=== PATIENT | female | born 1945 | race Caucasian/White ===

== ENCOUNTER → 2016-12-17 | Outpatient (CLI) | payer BC ==
[~2016-12-17] MED LIST: AMBIEN 5MG TABLE5 MG PO; ATARAX 25MG25 MG/TAB PO; BONIVA150 MG PO; CALCI-CHEW500 MG PO; CENTRUM SILVER1 TA1 PO; COGENTIN 1MG1 MG/TAB PO; DESYREL 100MG100 MG PO; EFFEXOR 75M75 MG/TAB PO; EFFEXOR-XR150 MG; EFFEXOR-XR150 MG PO; EFFEXOR75 MG PO; HALDOL0.5 MG PO; HCTZ 25MG TAB25 MG PO; HCTZ12.5TAB PO; IRON325 M1 PO; LEVAQUIN 750MG750 MG PO; LIPITOR 10MG10 MG PO; NORCO 325 MG-7.1 TAB; PHENDIMETRAZIN105 MG PO; PHENERGAN 25 TA25 MG PO; PHENERGAN W/CO120 ML PO; PULMICORT180 MCG/Ac IH; ROBINUL1 MG PO; SEREVENT IH; SEROQUEL 1100 MG/TAB PO; SEROQUEL400 MG PO; SYNTHROID0.075 MG/T PO; SYNTHROID0.088 MG/T PO; SYNTHROID0.1 MG PO; TOPAMAX200 MG PO; TRIAMCINOLONE0.025% TP; TRILEPTAL 300M300 MG PO; [UNRECOGNIZED DRUG - OTHER] PO
== END ==
LOC: BHSO 13:42
DX: F31.81 Bipolar II disorder (principal)

== ENCOUNTER 2017-03-03 15:00 | Outpatient (RCR) | payer BC ==
[~2017-03-03 15:00] MED LIST changes: -EFFEXOR 75M75 MG/TAB PO; -NORCO 325 MG-7.1 TAB; -PHENERGAN 25 TA25 MG PO; -ROBINUL1 MG PO; -TRILEPTAL 300M300 MG PO
== END 2017-04-05 | disposition home or self-care (01) ==
LOC: WSST
DX: E03.8 Other specified hypothyroidism (principal); E06.3 Autoimmune thyroiditis; G12.20 Motor neuron disease, unspecified; R47.1 Dysarthria and anarthria

== ENCOUNTER → 2017-03-26 | Outpatient (CLI) | payer BC ==
[~2017-03-26] MED LIST changes: +EFFEXOR 75M75 MG/TAB PO; +NORCO 325 MG-51 TAB PO; +NORCO 325 MG-7.1 TAB; +PHENERGAN 25 TA25 MG PO; +ROBINUL1 MG PO; +TOPAMAX50 MG PO; +TRILEPTAL 300M300 MG PO
== END ==
LOC: BHSO 10:14
DX: F31.81 Bipolar II disorder (principal)

== ENCOUNTER 2017-04-11 13:08 | Emergency (ER) | payer BC ==
[~2017-04-11] VITALS: Ht 147.3 cm; Wt 65.9 kg
[~2017-04-11 13:08] MED LIST changes: -EFFEXOR 75M75 MG/TAB PO; -NORCO 325 MG-51 TAB PO; -NORCO 325 MG-7.1 TAB; -PHENERGAN 25 TA25 MG PO; -ROBINUL1 MG PO; -TOPAMAX50 MG PO; -TRILEPTAL 300M300 MG PO
[2017-04-11 13:13] VITALS: TEMP 97.9
[2017-04-11 14:16] LABS: PH 7 (5-8); SQUAMOUS EPITHELIAL 0-2 /hpf; URINE APPEARANCE Clear; URINE BACTERIA None Seen /hpf; URINE BILIRUBIN Negative (NEGATIVE); URINE BLOOD Negative (NEGATIVE); URINE COLOR Yellow; URINE GLUCOSE Negative (NEGATIVE); URINE KETONE Negative (NEGATIVE); URINE RBC 0-2 /hpf; URINE UROBILINOGEN Negative (NEGATIVE); URINE WBC 0-2 /hpf
[2017-04-11] MEDS ORDERED: ROBINUL1 MG PO (14:22)
[2017-04-11] MEDS ORDERED: NORCO 325 MG-7.1 TAB (14:24)
[2017-04-11] MEDS ORDERED: TRILEPTAL 300M300 MG PO (14:24)
[2017-04-11] MEDS ORDERED: EFFEXOR 75M75 MG/TAB PO (14:25)
[2017-04-11 14:30] LABS: BASO % 0.5 % (0.0-2.0); EOS # 0.1 (0.0-0.7); EOS % 1.7 % (0-4.0); GRAN # 4.7 (1.4-6.5); GRAN % 80.4 % (42.2-75.2); LYMPH # 0.5 (1.2-3.4); LYMPH % 8.6 % (20.0-51.0); MEAN CELL VOLUME 82 fl (80.0-100.0); MEAN CORPUSCULAR HGB CONC 34 g/dl (33.0-37.0); MEAN PLATELET VOLUME 9.4 fl (7.4-10.4); MONO # 0.5 (0.1-0.6); MONO % 8.5 % (1.7-9.3); PLATELET COUNT 210 K/mm3 (130-400); RED BLOOD COUNT 4.16 M/mm3 (4.10-5.30); REDCELL DISTRIBUTION WIDTH-CV 12.6 % (11.5-14.5); WHITE BLOOD COUNT 5.8 K/mm3 (4.8-10.8)
[2017-04-11 14:31] LABS: HEMOGLOBIN 11.7 g/dl (12.5-16.0); MEAN CORPUSCULAR HEMOGLOBIN 28 pg (27.0-31.0)
[2017-04-11 14:46] LABS: ADJUSTED CALCIUM 8.4 mg/dL (8.4-10.2); ALANINE AMINOTRANSFERASE 26 U/L (9-52); ALBUMIN 3.7 gm/dL (3.5-5.0); ALKALINE PHOSPHATASE 122 U/L (50-136); ANION GAP 10 mmol/L (7-16); BILIRUBIN,TOTAL 0.7 mg/dL (0.0-1.0); BLOOD UREA NITROGEN 10 mg/dL (7-17); C-REACTIVE PROTEIN < 0.5 mg/dL (0.0-0.9); CALCIUM 8.2 mg/dL (8.4-10.2); CARBON DIOXIDE 28 mmol/L (22-30); CHLORIDE 92 mmol/L (98-107); CREATININE, serum 0.54 mg/dL (0.52-1.25); GLUCOSE 107 mg/dL (74-106); LIPASE 50 U/L (23-300); POTASSIUM 3.3 mmol/L (3.4-5.0); SODIUM 130 mmol/L (137-145); TOTAL PROTEIN 6.5 gm/dL (6.4-8.2)
[2017-04-11 16:16] VITALS: BP 141/75; PULSE 72
[2017-04-11] MEDS ORDERED: PHENERGAN 25 TA25 MG PO (21:24)
== END 2017-04-11 16:16 | disposition home or self-care (01) ==
LOC: COL.ER 13:08
PROVIDERS: Emergency Medicine
DX: R10.32 Left lower quadrant pain (principal); G12.29 Other motor neuron disease; R13.10 Dysphagia, unspecified; F31.9 Bipolar disorder, unspecified; R10.12 Left upper quadrant pain; Z93.1 Gastrostomy status; K59.00 Constipation, unspecified
CPT/HCPCS: J1170; J2405; J7030; Q9967

== ENCOUNTER 2017-04-11 19:41 | Emergency (ER) | payer BC ==
[~2017-04-11] VITALS: Ht 147.3 cm; Wt 90.9 kg
[~2017-04-11 19:41] MED LIST changes: +EFFEXOR 75M75 MG/TAB PO; +NORCO 325 MG-7.1 TAB; +ROBINUL1 MG PO; +TRILEPTAL 300M300 MG PO
[2017-04-11 19:43] VITALS: TEMP 97.4
[2017-04-11 20:46] LABS: BASO % 0.3 % (0.0-2.0); EOS % 0.6 % (0-4.0); GRAN # 5.8 (1.4-6.5); GRAN % 85.7 % (42.2-75.2); LYMPH # 0.4 (1.2-3.4); LYMPH % 6.4 % (20.0-51.0); MEAN CELL VOLUME 82 fl (80.0-100.0); MEAN CORPUSCULAR HGB CONC 34 g/dl (33.0-37.0); MEAN PLATELET VOLUME 9.6 fl (7.4-10.4); MONO # 0.5 (0.1-0.6); MONO % 6.7 % (1.7-9.3); PLATELET COUNT 211 K/mm3 (130-400); REDCELL DISTRIBUTION WIDTH-CV 12.7 % (11.5-14.5); WHITE BLOOD COUNT 6.7 K/mm3 (4.8-10.8)
[2017-04-11 20:54] LABS: HEMATOCRIT 33.5 % (37.0-47.0); HEMOGLOBIN 11.5 g/dl (12.5-16.0); MEAN CORPUSCULAR HEMOGLOBIN 28 pg (27.0-31.0)
[2017-04-11 20:56] LABS: ADJUSTED CALCIUM 8.2 mg/dL (8.4-10.2); BILIRUBIN,TOTAL 0.7 mg/dL (0.0-1.0); CALCIUM 8.2 mg/dL (8.4-10.2); CREATININE, serum 0.53 mg/dL (0.52-1.25); POTASSIUM 3.3 mmol/L (3.4-5.0); TOTAL PROTEIN 6.8 gm/dL (6.4-8.2)
[2017-04-11] MEDS ORDERED: PHENERGAN 25 TA25 MG PO (21:24)
[2017-04-11 21:49] VITALS: BP 162/70; PULSE 64
== END 2017-04-11 22:03 | disposition home or self-care (01) ==
LOC: COL.ER 19:41
PROVIDERS: Family Medicine
DX: K52.9 Noninfective gastroenteritis and colitis, unspecified (principal); G12.29 Other motor neuron disease
CPT/HCPCS: J2550; J7030

== ENCOUNTER → 2017-04-27 | Outpatient (CLI) | payer BC ==
[~2017-04-27] MED LIST changes: +NORCO 325 MG-51 TAB PO; +PHENERGAN 25 TA25 MG PO; +TOPAMAX50 MG PO
== END ==
LOC: BHSO 13:11
DX: F31.73 Bipolar disorder, in partial remission, most recent episode manic (principal)

== ENCOUNTER → 2017-05-14 | Outpatient (CLI) | payer BC | LOC: MC.RAD 09:20 | DX: Z12.31 Encounter for screening mammogram for malignant neoplasm of breast (principal); R92.1 Mammographic calcification found on diagnostic imaging of breast ==

== ENCOUNTER → 2017-05-26 | Outpatient (CLI) | payer BC | LOC: MC.RAD 10:00 | DX: R92.0 Mammographic microcalcification found on diagnostic imaging of breast (principal) ==

== ENCOUNTER → 2017-06-11 | Outpatient (CLI) | payer BC | LOC: BHSO 10:30 | DX: F31.73 Bipolar disorder, in partial remission, most recent episode manic (principal) ==

== ENCOUNTER → 2017-07-13 | Outpatient (CLI) | payer BC | LOC: BHSO 15:09 | DX: F31.73 Bipolar disorder, in partial remission, most recent episode manic (principal) ==

== ENCOUNTER 2017-07-15 15:39 | Emergency (ER) | payer BC ==
[~2017-07-15] VITALS: Ht 177.8 cm; Wt 61.8 kg
[~2017-07-15 15:39] MED LIST changes: -NORCO 325 MG-51 TAB PO; -TOPAMAX50 MG PO
[2017-07-15 15:43] VITALS: TEMP 98
[2017-07-15 16:49] LABS: BASO # 0.1 (0.0-0.2); BASO % 0.8 % (0.0-2.0); EOS # 0.2 (0.0-0.7); EOS % 3.6 % (0-4.0); GRAN # 4.1 (1.4-6.5); GRAN % 67.5 % (42.2-75.2); LYMPH # 1.1 (1.2-3.4); LYMPH % 17.9 % (20.0-51.0); MEAN CELL VOLUME 86 fl (80.0-100.0); MEAN CORPUSCULAR HGB CONC 33 g/dl (33.0-37.0); MEAN PLATELET VOLUME 9.7 fl (7.4-10.4); MONO # 0.6 (0.1-0.6); MONO % 9.9 % (1.7-9.3); PLATELET COUNT 215 K/mm3 (130-400); RED BLOOD COUNT 4.01 M/mm3 (4.10-5.30); REDCELL DISTRIBUTION WIDTH-CV 13.2 % (11.5-14.5)
[2017-07-15 16:50] LABS: HEMATOCRIT 34.5 % (37.0-47.0); HEMOGLOBIN 11.5 g/dl (12.5-16.0); MEAN CORPUSCULAR HEMOGLOBIN 29 pg (27.0-31.0)
[2017-07-15] MEDS ORDERED: SEROQUEL 1100 MG/TAB PO (16:56)
[2017-07-15] MEDS ORDERED: TOPAMAX50 MG PO (16:57)
[2017-07-15 17:00] LABS: ADJUSTED CALCIUM 9.1 mg/dL (8.4-10.2); ALANINE AMINOTRANSFERASE 28 U/L (9-52); ALBUMIN 3.6 gm/dL (3.5-5.0); ALKALINE PHOSPHATASE 92 U/L (50-136); ANION GAP 9 mmol/L (7-16); BILIRUBIN,TOTAL 0.3 mg/dL (0.0-1.0); BLOOD UREA NITROGEN 26 mg/dL (7-17); CALCIUM 8.8 mg/dL (8.4-10.2); CARBON DIOXIDE 28 mmol/L (22-30); CHLORIDE 99 mmol/L (98-107); CREATININE, serum 0.65 mg/dL (0.52-1.25); GLUCOSE 92 mg/dL (74-106); LIPASE 128 U/L (23-300); POTASSIUM 3.9 mmol/L (3.4-5.0); SODIUM 136 mmol/L (137-145); TOTAL PROTEIN 6.4 gm/dL (6.4-8.2)
[2017-07-15 17:06] LABS: C-REACTIVE PROTEIN < 0.5 mg/dL (0.0-0.9)
[2017-07-15 17:30] LABS: PH 6 (5-8); SQUAMOUS EPITHELIAL None Seen /hpf; URINE APPEARANCE Clear; URINE BACTERIA None Seen /hpf; URINE BILIRUBIN Negative (NEGATIVE); URINE BLOOD Negative (NEGATIVE); URINE COLOR Yellow; URINE GLUCOSE Negative (NEGATIVE); URINE KETONE Negative (NEGATIVE); URINE RBC None Seen /hpf; URINE UROBILINOGEN Negative (NEGATIVE); URINE WBC 0-2 /hpf
[2017-07-15] MEDS ORDERED: NORCO 325 MG-51 TAB PO (17:54)
[2017-07-15 18:16] VITALS: BP 139/80; PULSE 71
== END 2017-07-15 18:17 | disposition home or self-care (01) ==
LOC: COL.ER 15:39
PROVIDERS: Family Medicine
DX: R10.32 Left lower quadrant pain (principal); G12.21 Amyotrophic lateral sclerosis; Z98.890 Other specified postprocedural states
CPT/HCPCS: J2405; J3010; J7030

== ENCOUNTER 2017-08-04 12:26 | Emergency (ER) | payer BC ==
[~2017-08-04] VITALS: Ht 154.9 cm; Wt 63.0 kg
[~2017-08-04 12:26] MED LIST changes: +NORCO 325 MG-51 TAB PO; +TOPAMAX50 MG PO
[2017-08-04 12:28] VITALS: BP 122/60; PULSE 86; TEMP 96.8
== END 2017-08-04 13:04 | disposition home or self-care (01) ==
LOC: COL.ER 12:26
DX: K94.23 Gastrostomy malfunction (principal)
CPT/HCPCS: 40045; B4087

== ENCOUNTER 2017-08-18 11:55 | Emergency (ER) | payer BC ==
[~2017-08-18] VITALS: Ht 147.3 cm; Wt 63.2 kg
[2017-08-18 11:59] VITALS: BP 128/63; TEMP 98.2
[2017-08-18] MEDS ORDERED: HYCET SOLN PO (12:40)
[2017-08-18] MEDS ORDERED: SEROQUEL XR150 MG PO (12:40)
[2017-08-18 13:29] VITALS: PULSE 76
== END 2017-08-18 13:30 | disposition home or self-care (01) ==
LOC: COL.ER 11:55
DX: K94.23 Gastrostomy malfunction (principal)
CPT/HCPCS: 40047; B4087

== ENCOUNTER → 2017-09-04 | Outpatient (CLI) | payer BC ==
[~2017-09-04] MED LIST changes: +HYCET SOLN PO; +SEROQUEL XR150 MG PO
== END ==
LOC: BHSO 11:09
DX: F60.3 Borderline personality disorder (principal)

== ENCOUNTER → 2017-09-28 | Outpatient (CLI) | payer BC | LOC: BHSO 14:39 | DX: F31.81 Bipolar II disorder (principal) ==

== ENCOUNTER 2017-10-20 20:40 | Emergency (ER) | payer BC, MEDICARE ==
[~2017-10-20] VITALS: Ht 149.9 cm; Wt 63.6 kg
[2017-10-20 20:42] VITALS: TEMP 98.4
[2017-10-20 22:04] LABS: BASO # 0.1 (0.0-0.2); BASO % 0.7 % (0.0-2.0); EOS # 0.3 (0.0-0.7); EOS % 4.1 % (0-4.0); GRAN # 5.1 (1.4-6.5); GRAN % 69.7 % (42.2-75.2); HEMATOCRIT 39.8 % (37.0-47.0); HEMOGLOBIN 12.9 g/dl (12.5-16.0); LYMPH # 1.3 (1.2-3.4); MEAN CELL VOLUME 88 fl (80.0-100.0); MEAN CORPUSCULAR HEMOGLOBIN 29 pg (27.0-31.0); MEAN CORPUSCULAR HGB CONC 32 g/dl (33.0-37.0); MONO # 0.5 (0.1-0.6); MONO % 7.2 % (1.7-9.3); PLATELET COUNT 248 K/mm3 (130-400); RED BLOOD COUNT 4.52 M/mm3 (4.10-5.30); WHITE BLOOD COUNT 7.4 K/mm3 (4.8-10.8)
[2017-10-20 22:06] LABS: ACETAMINOPHEN < 10 ug/mL (10-30); ADJUSTED CALCIUM 9.2 mg/dL (8.4-10.2); ALANINE AMINOTRANSFERASE 44 U/L (9-52); ALBUMIN 4.5 gm/dL (3.5-5.0); ALCOHOL(ethanol),MEDICAL < 10 mg/dL; ALKALINE PHOSPHATASE 107 U/L (50-136); ANION GAP 13 mmol/L (7-16); BILIRUBIN,TOTAL 0.3 mg/dL (0.0-1.0); BLOOD UREA NITROGEN 30 mg/dL (7-17); CALCIUM 9.6 mg/dL (8.4-10.2); CARBON DIOXIDE 29 mmol/L (22-30); CHLORIDE 101 mmol/L (98-107); CREATININE, serum 0.72 mg/dL (0.52-1.25); GLUCOSE 101 mg/dL (74-106); POTASSIUM 3.3 mmol/L (3.4-5.0); SALICYLATE < 1.0 mg/dL; SODIUM 142 mmol/L (137-145); TOTAL PROTEIN 7.7 gm/dL (6.4-8.2)
[2017-10-20 23:18] LABS: AMPHETAMINE URINE NEGATIVE; BARBITURATES URINE NEGATIVE; BENZODIAZEPINES URINE NEGATIVE; BUPRENORPHINE URINE NEGATIVE; METHADONE URINE NEGATIVE; OPIATES URINE POSITIVE; OXYCODONE URINE NEGATIVE; PHENCYCLIDINE URINE NEGATIVE; PROPOXYPHENE URINE NEGATIVE; THC CANNABINOIDS URINE NEGATIVE; TRICYCLIC ANTIDEPRESS URINE NEGATIVE
[2017-10-21] MEDS ORDERED: ISOSOURCE 1.51000 M1 PO ×3 (04:57→04:58)
[2017-10-21 14:38] VITALS: BP 133/68; PULSE 64
== END 2017-10-21 18:43 ==
LOC: COL.ER 20:40
PROVIDERS: Emergency Medicine
DX: F31.9 Bipolar disorder, unspecified (principal); R45.851 Suicidal ideations; E78.5 Hyperlipidemia, unspecified; E03.9 Hypothyroidism, unspecified

== ENCOUNTER 2017-11-21 19:14 | Observation (INO) | payer BC, MEDICARE ==
[~2017-11-21] VITALS: Ht 149.9 cm; Wt 61.0 kg
[~2017-11-21 19:14] MED LIST changes: +ISOSOURCE 1.51000 M1 PO
[2017-11-21 20:20] LABS: BASO % 0.3 % (0.0-2.0); EOS # 0.1 (0.0-0.7); EOS % 1.3 % (0-4.0); GRAN % 75.7 % (42.2-75.2); HEMATOCRIT 39.5 % (37.0-47.0); LYMPH # 1.2 (1.2-3.4); LYMPH % 13.2 % (20.0-51.0); MEAN CELL VOLUME 86 fl (80.0-100.0); MEAN CORPUSCULAR HEMOGLOBIN 28 pg (27.0-31.0); MEAN CORPUSCULAR HGB CONC 33 g/dl (33.0-37.0); MEAN PLATELET VOLUME 9.5 fl (7.4-10.4); MONO # 0.8 (0.1-0.6); MONO % 9.1 % (1.7-9.3); PLATELET COUNT 361 K/mm3 (130-400); RED BLOOD COUNT 4.59 M/mm3 (4.10-5.30); REDCELL DISTRIBUTION WIDTH-CV 13.2 % (11.5-14.5)
[2017-11-21 20:27] LABS: ACETAMINOPHEN < 10 ug/mL (10-30); ALANINE AMINOTRANSFERASE 34 U/L (9-52); ALBUMIN 4.4 gm/dL (3.5-5.0); ALCOHOL(ethanol),MEDICAL < 10 mg/dL; ALKALINE PHOSPHATASE 112 U/L (50-136); ANION GAP 10 mmol/L (7-16); AST,SGOT 35 U/L (15-37); BILIRUBIN,TOTAL 0.5 mg/dL (0.0-1.0); BLOOD UREA NITROGEN 23 mg/dL (7-17); CALCIUM 9.4 mg/dL (8.4-10.2); CARBON DIOXIDE 30 mmol/L (22-30); CHLORIDE 100 mmol/L (98-107); CREATININE, serum 0.74 mg/dL (0.52-1.25); GLUCOSE 109 mg/dL (74-106); POTASSIUM 3.4 mmol/L (3.4-5.0); SALICYLATE < 1.0 mg/dL; SODIUM 139 mmol/L (137-145); TOTAL PROTEIN 8.1 gm/dL (6.4-8.2)
[2017-11-21 20:30] LABS: COLLECTION METHOD CLEAN CATCH
[2017-11-21 20:36] LABS: PH 6 (5-8); SQUAMOUS EPITHELIAL 0-2 /hpf; URINE APPEARANCE Clear; URINE BACTERIA None Seen /hpf; URINE BILIRUBIN Negative (NEGATIVE); URINE BLOOD Negative (NEGATIVE); URINE COLOR Yellow; URINE GLUCOSE Negative (NEGATIVE); URINE KETONE Negative (NEGATIVE); URINE LEUKOCYTE ESTERASE Negative (NEGATIVE); URINE NITRATE Negative (NEGATIVE); URINE PROTEIN(semi-quant) Negative (NEGATIVE); URINE RBC 0-2 /hpf
[2017-11-21 20:42] LABS: TRICYCLIC ANTIDEPRESS URINE POSITIVE
[2017-11-23 01:08] VITALS: BP 128/52; PULSE 61; TEMP 97
[2017-11-23 06:42] VITALS: BP 101/43; PULSE 65; TEMP 97.9
[2017-11-23 11:58] VITALS: BP 115/60; PULSE 77; TEMP 97.9
[2017-11-23 17:08] VITALS: BP 135/65; PULSE 88; TEMP 97.4
[2017-11-23 21:04] VITALS: BP 132/60; PULSE 80; TEMP 98.1
[2017-11-23 23:21] VITALS: BP 149/58; PULSE 82; TEMP 97.9
[2017-11-24 04:00] VITALS: BP 113/53; PULSE 66
[2017-11-24 08:30] VITALS: BP 125/58; PULSE 70; TEMP 98.6
[2017-11-24 12:21] VITALS: BP 117/71; PULSE 89; TEMP 97.1
[2017-11-24 16:40] VITALS: BP 134/69; PULSE 63; TEMP 97.7
[2017-11-24 20:01] VITALS: BP 135/68; PULSE 81; TEMP 97.2
[2017-11-25 11:15] VITALS: BP 112/54; PULSE 74; TEMP 97.5
[2017-11-25] MEDS ORDERED: ZYPREXA 5MG5 MG PO (16:15)
== END 2017-11-25 19:30 | disposition home or self-care (01) ==
LOC: COL.ER 19:14 → MEDICAL 11-23 00:09
PROVIDERS: Emergency Medicine
DX: F31.4 Bipolar disorder, current episode depressed, severe, without psychotic features (principal); T58.02XA Toxic effect of carbon monoxide from motor vehicle exhaust, intentional self-harm, initial encounter; Y92.008 Other place in unspecified non-institutional (private) residence as the place of occurrence of the external cause; G12.21 Amyotrophic lateral sclerosis; I10 Essential (primary) hypertension; E78.5 Hyperlipidemia, unspecified; Z88.0 Allergy status to penicillin; Z88.8 Allergy status to other drugs, medicaments and biological substances
CPT/HCPCS: G0463

== ENCOUNTER → 2018-05-20 | Outpatient (CLI) | payer BC ==
[~2018-05-20] MED LIST changes: +ZYPREXA 5MG5 MG PO
== END ==
LOC: MC.RAD 13:59
DX: Z12.31 Encounter for screening mammogram for malignant neoplasm of breast (principal); Z98.890 Other specified postprocedural states

== ENCOUNTER → 2019-06-07 | Outpatient (CLI) | payer BC | LOC: MC.RAD 16:15 | DX: Z12.31 Encounter for screening mammogram for malignant neoplasm of breast (principal) ==

== ENCOUNTER 2019-07-16 09:51 | Emergency (ER) | payer BC, MEDICARE ==
[~2019-07-16] VITALS: Ht 149.9 cm; Wt 53.6 kg
[2019-07-16 09:53] VITALS: TEMP 97.6
[2019-07-16 15:09] VITALS: BP 127/62; PULSE 73
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
== END 2019-07-16 15:09 | disposition home or self-care (01) ==
LOC: COL.ER 09:51
DX: S00.01XA Abrasion of scalp, initial encounter (principal); W19.XXXA Unspecified fall, initial encounter; W22.8XXA Striking against or struck by other objects, initial encounter

== ENCOUNTER 2019-09-15 20:02 | Emergency (ER) | payer BC ==
[~2019-09-15] VITALS: Ht 149.9 cm; Wt 51.4 kg
[2019-09-15 20:07] VITALS: BP 130/64; PULSE 70; TEMP 98.2
== END 2019-09-15 20:54 | disposition home or self-care (01) ==
LOC: COL.ER 20:02
DX: K94.23 Gastrostomy malfunction (principal); F31.9 Bipolar disorder, unspecified; Z98.51 Tubal ligation status